=== PATIENT | male | born 1960 | race Caucasian/White ===

== ENCOUNTER 2017-04-24 16:35 | Emergency (ER) | payer OTHER ==
[2017-04-24 16:59] VITALS: BP 127/78; PULSE 51; RESP 18; TEMP 97.3; O2SAT 97
--- NOTE | 2017-04-24 17:39 | EDPHY ---
H & P Stated Complaint: red eyes, bilat Source: Patient, Feeder Loader - Medical/Surgical History Other PMH: Heart murmur - Social History Smoking Status: Former smoker Time Seen by Provider: 04/24/17 17:02 HPI/ROS: CHIEF COMPLAINT: red eyes HISTORY OF PRESENT ILLNESS: 56-year-old male presents to the emergency department complaining of bilateral red eyes. Patient woke up yesterday morning and noticed redness to his right eye, he woke up this morning and had redness to both eyes. Patient denies discharge, blurred vision, photophobia, foreign body sensation, pruritus. Patient denies trauma. No recent vomiting, coughing or straining that he can recall. Pt takes no medication daily. No history of hypertension. Pt denies seasonal allergies or dry eye sensation. REVIEW OF SYSTEMS: A comprehensive 10 point review of systems is otherwise negative aside from elements mentioned in the history of present illness. (Macie Aguayo) - Physical Exam Exam: Visual Acuity: Noted from Nurse's notes. Pupils: PERRLA, EOMI, no nystagmus, no trauma, no injection. Lids: No edema or swelling Skin: No proptosis, no periorbital erythema or swelling, no vesicles Conjunctivae: injected bilaterally not icteric, no discharge Anterior chamber: Normal, no hyphema or hypopyon (Macie Aguayo) Constitutional: Initial Vital Signs Temperature (C) 36.3 C 04/24/17 16:56 Heart Rate 51 L 04/24/17 16:56 Respiratory Rate 18 04/24/17 16:56 Blood Pressure 127/78 H 04/24/17 16:56 O2 Sat (%) 97 04/24/17 16:56 O2 Delivery Mode Room Air Allergies/Adverse Reactions: No Known Allergies Allergy (Unverified 04/24/17 16:54) Home Medications: Medication Instructions Recorded NK [No Known Home Meds] 04/24/17 Medical Decision Making ED Course/Re-evaluation: 56-year-old male presents bilateral subconjunctival hemorrhages with no other symptoms. Patient has a normal visual acuity no discharge, no evidence of infection, no photophobia. Patient denies trauma. Dizziness, chest pain, shortness of, no bleeding gums, hematuria or blood in stool. Patient takes no anticoagulants. Patient does not were contact lenses. I have recommended saline eyedrops 4 times a day and follow [facility] next week. He is given strict return precautions for any new symptoms or concerns. (Macie Aguayo) Differential Diagnosis: Diagnosis considered but not limited to subconjunctival hemorrhage, episcleritis , scleritis, iritis, foreign body, corneal abrasion. (Macie Aguayo) Departure - Departure Disposition: Home, Routine, Self-Care Clinical Impression: Subconjunctival hemorrhage, non-traumatic Condition: Good Instructions: Subconjunctival Hemorrhage (ED) Additional Instructions: Use lubricating saline eye drops four times per day. Follow [facility] for re-evaluation. Return to the emergency department for any headache, blurred vision, light headed, dizzy, short of breath, chest pain, blood in urine, stool or any bleeding from your gums. Use gotas kemp lubricantes cutro veces por patricio. Lakshmi romeo de seguimiento con la [facility] esta proxima semana para rambo reevaluacion. Regrese al departamento de Emergencias por cualquier dolor de pati, vista borrosa, aturdido, mareado, falta de aire, dolor en el pecho, shira en la orina, evacuacion intestinal o cualquier sagrado de greg gomas. Referrals: [facility] [Other] - As per Instructions Print Language: Beninese
== END 2017-04-24 18:10 | disposition home or self-care (01) ==
DX: H11.33 Conjunctival hemorrhage, bilateral (principal); Z87.891 Personal history of nicotine dependence

== ENCOUNTER 2017-05-25 07:32 | Day surgery (SDC) | payer OTHER ==
[2017-05-25] MEDS ORDERED: ASPIRIN EC 325 MG TAB PO ONE (07:36)
[2017-05-25] MEDS ORDERED: NS 1,000 ML IV ONE (07:36)
[2017-05-25] MEDS ORDERED: DIAZEPAM 5 MG TAB PO ONE (07:36)
[2017-05-25] MEDS ORDERED: FAMOTIDINE 20 MG TAB PO ONE (07:36)
[2017-05-25] MEDS ORDERED: diphenhydrAMINE 25 MG CAP PO ONE (07:36)
--- NOTE | 2017-05-25 08:07 | CPEKG ---
Heart Rate: 52 RR Interval: 1154 P-R Interval: 168 QRSD Interval: 102 QT Interval: 472 QTC Interval: 439 P Ash[place]: 47 QRS [place]: 19 T Wave [place]: 165 EKG Severity - ABNORMAL ECG - EKG Impression: SINUS RHYTHM EKG Impression: LVH WITH SECONDARY REPOLARIZATION ABNORMALITY EKG Impression: ANTERIOR ST ELEVATION, PROBABLY DUE TO LVH Electronically Signed By: Jasmeet Umanzor 25-May-2017 09:05:38
[2017-05-25 08:22] LABS: % IMMATURE GRANULYOCYTES 0.4 % (0.0-1.1); ABSOLUTE IMMATURE GRANULOCYTES 0.02 10^3/uL (0.00-0.10); ADD DIFF? NO; ADD MORPH? NO; ADD SCAN? NO; ATYPICAL LYMPHOCYTE FLAG 10 (0-99); FRAGMENT RBC FLAG 0 (0-99); HEMATOCRIT 43.4 % (40.0-51.0); LEFT SHIFT FLG 0 (0-99); LIPEMIA HEMOLYSIS FLAG 90 (0-99); MEAN CELL HEMOGLOBIN 31.6 pg (27.9-34.1); MEAN CELL HEMOGLOBIN CONCENTR. 34.6 g/dL (32.4-36.7); MEAN CELL VOLUME 91.6 fL (81.5-99.8); MEAN PLATELET VOLUME 10.6 fL (8.7-11.7); PLATELET CLUMPS FLAG 0 (0-99); PLATELET COUNT 182 10^3/uL (150-400); RED BLOOD CELL COUNT 4.74 10^6/uL (4.40-6.38); RED CELL DISTRIBUTION WIDTH 13.8 % (11.5-15.2)
[2017-05-25 08:32] LABS: INR 0.97 (0.83-1.16); PROTIME(PATIENT) 12.8 SEC (12.0-15.0)
[2017-05-25 08:40] LABS: ANION GAP 8 mEq/L (8-16); CALCIUM 9.5 mg/dL (8.5-10.4); CARBON DIOXIDE 26 mEq/l (22-31); CHLORIDE 105 mEq/L (97-110); CHOLESTEROL 227 mg/dL (140-220); CHOLESTEROL/HDL RATIO 2.55 RATIO (1.00-4.97); GLOMERULAR FILTRATION RATE > 60; GLUCOSE 91 mg/dL (70-100); HIGH DENSITY LIPOPROTEIN 89 mg/dL (40-65); LDL/HDL RATIO 1.35 RATIO (1.00-3.64); LOW DENSITY LIPOPROTEIN 120 mg/dL (80-100); MAGNESIUM 2.1 mg/dL (1.6-2.3); NON-HIGH DENSITY LIPOPROTEIN 138 mg/dL (90-129); POTASSIUM 3.8 mEq/L (3.5-5.2); SODIUM 139 mEq/L (134-144); TRIGLYCERIDE 94 mg/dL (40-150); VERY LOW DENSITY LIPOPROTEINS 18 mg/dL (8-25)
[2017-05-25] MEDS ORDERED: LIDOCAINE 1% 300 MG/30 ML SDV ONE (09:30)
[2017-05-25] MEDS ORDERED: IOPAMIDOL (ISOVUE-370) 150 ML BTL IV ONE (09:30)
[2017-05-25] MEDS ORDERED: fentaNYL 100 MCG/2 ML INJ ONE (09:40)
[2017-05-25] MEDS ORDERED: MIDAZOLAM 2 MG/2 ML VIAL ONE (09:41)
[2017-05-25] MEDS ORDERED: ATROPINE SULFATE 1 MG/10 ML SYR ONE (10:45)
--- NOTE | 2017-05-25 13:03 | CPIP ---
[f rep st] INVASIVE CARDIAC PROCEDURE DATE OF PROCEDURE: 05/25/2017 PRIMARY CARE: [facility]. INDICATIONS: Critical aortic stenosis. Preoperative coronary evaluation. PROCEDURES: 1. Left heart catheterization. 2. Coronary angiography. COMPLICATIONS: None. DESCRIPTION OF PROCEDURE: N.p.o. status was confirmed, informed consent obtained via a [place]ander inte rpreter, and timeout performed. The patient was brought to the catheterization laboratory and prepp ed and draped in sterile fashion. Adequate conscious sedation was achieved with Versed and fentanyl IV. 1% lidocaine was used for local anesthesia in the right femoral region. Using modified Seldin sherin technique, a 6-Romansh introducer sheath was placed in the right common femoral artery. JL 3.5 c atheter was used for left coronary angiography. JR4 catheter was used for right coronary angiograph y. We did not cross the aortic valve as the patient has known critical aortic stenosis. FINDINGS: 1. The left main is normal and bifurcates into the LAD, a ramus intermedius, and the circumflex. 2. The LAD reaches the apex. There are 2 small diagonal vessels. No significant disease. 3. The ramus is a medium to large vessel. There is no significant coronary disease. 4. The circumflex has 1 obtuse marginal. There is no significant disease. 5. The right coronary artery is dominant and quite large. There is no significant coronary disease . 6. On fluoroscopy the aortic valve and aortic anulus are heavily calcified. 7. Hemodynamics: Aortic pressure 108/74. CONCLUSIONS: 1. No significant coronary disease in this right dominant system. 2. Known critical aortic stenosis based on echocardiography and clinical presentation. 3. The sheath in the right femoral artery will be removed manually as the patient has a high bifurc ation of his superficial and common femoral arteries. 4. Taken to CVC in stable condition. 5. Results discussed with the patient's son. 6. He will have a noncontrast chest CT of his aorta today for pre-cardiac surgery planning. /[id number]/MODL
== END 2017-05-25 16:56 | disposition home or self-care (01) ==
LOC: FCATH 07:32
PROVIDERS: ATTEND Internal Medicine Cardiovascular Disease
PROC: 4A023N7 Measurement of Cardiac Sampling and Pressure, Left Heart, Percutaneous Approach (ICD-10-PCS; principal; 2017-05-25)
PROC: B2161ZZ Fluoroscopy of Right and Left Heart using Low Osmolar Contrast (ICD-10-PCS; principal; 2017-05-25)
DX: Z01.810 Encounter for preprocedural cardiovascular examination (principal); I35.0 Nonrheumatic aortic (valve) stenosis; I10 Essential (primary) hypertension
CPT/HCPCS: J0461; J1644; J2250; J3010; Q9967

== ENCOUNTER → 2017-06-03 | Outpatient (CLI) | payer OTHER | LOC: FIMAGING 12:12 | PROVIDERS: ATTEND Thoracic Surgery (Cardiothoracic Vascular Surgery) | DX: R91.8 Other nonspecific abnormal finding of lung field (principal) ==

== ENCOUNTER 2017-06-10 05:48 | Inpatient (IN) | payer OTHER ==
[2017-06-10] MEDS ORDERED: LIDOCAINE 1% 2 ML INJ ONE (06:35)
[2017-06-10] MEDS: MINERAL OIL 10 ML VIAL ONE ×2 (06:36→13:08)
[2017-06-10] MEDS: PROTAMINE SULFATE 50 MG/5 ML VIAL IVP ONE ×2 (06:38→13:09)
[2017-06-10] MEDS: POTASSIUM Cl (KCl) 20 MEQ/50 ML BAG IV ONE ×2 (06:39→13:09)
[2017-06-10] MEDS: CITRATE DEXTROSE SOLN 500 ML BAG ONE ×2 (06:39→12:59)
[2017-06-10] MEDS: NA BICARBONATE 50 MEQ/50 ML VIAL ONE ×2 (06:39→13:10)
[2017-06-10] MEDS: ALBUMIN 5% 250 ML BOTTLE IV ONE ×2 (06:39→12:58)
[2017-06-10] MEDS: MILRINONE/DEXTROSE/100 ML BAG IV ONE ×2 (06:39→13:08)
[2017-06-10] MEDS: DOPamine/DEXTROSE/250 ML BAG IV ONE ×2 (06:39→12:59)
[2017-06-10] MEDS: AMINOCAPROIC ACID 5 GM/20 ML VIAL ONE ×2 (06:39→12:58)
[2017-06-10] MEDS: CALCIUM CHLORIDE 1 GM/10 ML INJ ONE ×2 (06:39→12:58)
[2017-06-10] MEDS: LIDOCAINE 2% 100 MG/5 ML SYR ONE ×2 (06:39→13:09)
[2017-06-10] MEDS ORDERED: MAGNESIUM SULFATE 1 GM/2 ML VIAL ONE (06:40)
[2017-06-10] MEDS ORDERED: AMIODARONE HCL 150 MG/3 ML VIAL ONE (06:40)
[2017-06-10] MEDS ORDERED: niCARdipine/NACL/200 ML BAG IV ONE (06:40)
[2017-06-10] MEDS ORDERED: ADENOSINE 6 MG/2 ML VIAL ONE (06:40)
[2017-06-10] MEDS ORDERED: methylPREDNISolone SOD SUCC 1 GM/8 ML VIAL ONE (06:40)
[2017-06-10] MEDS ORDERED: HEPARIN 10,000 UNIT/10 ML MDV ONE (06:41)
[2017-06-10] MEDS ORDERED: ceFAZolin 1 GM VIAL ONE (06:41)
[2017-06-10] MEDS ORDERED: LR 1,000 ML IV ONE (06:52)
--- NOTE | 2017-06-10 06:53 | PDHPUP ---
History & Physical Update H&P update statement: This history and physical update is based on an assessment of the patient which was completed after admission or registration (within 24 hours), but prior to the surgery/procedure. H&P update: H&P reviewed & patient examined, no change in patient's condition since H&P completed
[2017-06-10] MEDS ORDERED: CEFAZOLIN 2 GM/DEXTROSE/100 ML BAG IV ONE (06:56)
[2017-06-10] MEDS ORDERED: MUPIROCIN 2% 22 GM OINT ONE (06:56)
--- NOTE | 2017-06-10 07:03 | PDANEPAE ---
ANE History of Present Illness here for avr ANE Past Medical History - Cardiovascular History Hx Hypertension: Yes Hx Arrhythmias: No Hx Chest Pain: No Hx Coronary Artery / Peripheral Vascular Disease: No Hx CHF / Valvular Disease: No Hx Palpitations: No Cardiovascular History Comment: aortic stenosis - Pulmonary History Hx COPD: No Hx Asthma/Reactive Airway Disease: No Hx Recent Upper Respiratory Infection: No Hx Oxygen in Use at Home: No Hx Sleep Apnea: No Sleep Apnea Screening Result - Last Documented: Positive - Neurologic History Hx Cerebrovascular Accident: No Hx Seizures: No Hx Dementia: No - Endocrine History Hx Diabetes: No Hypothyroid: No Hyperthyroid: No Obesity: no - Renal History Hx Renal Disorders: No - Liver History Hx Hepatic Disorders: No - Neurological & Psychiatric Hx Hx Neurological and Psychiatric Disorders: No - Cancer History Hx Cancer: No - Congenital Disorder History Hx Congenital Disorders: No - GI History GERD: no, mild Hx Gastrointestinal Disorders: No - Other Health History Other Health History: none - Chronic Pain History Chronic Pain: No - Surgical History Prior Surgeries: na ANE Review of Systems Review of systems is: negative - Exercise capacity Exercise capacity: >=4 METS METS (RN): 3 METS ANE Patient History - Allergies Allergies/Adverse Reactions: No Known Allergies Allergy (Verified 06/09/17 17:46) - Home Medications Home medications: home medication list seen and reviewed Home Medications: Aspirin 81mg (*) 81 mg PO DAILY 05/25/17 [Last Taken Unknown] - Smoking Hx Smoking Status: Former smoker - Family Anes Hx Family Hx Anesthesia Complications: na ANE Labs/Vital Signs - Vital Signs Blood Pressure: 122/80 Heart Rate: 53 Respiratory Rate: 16 O2 Sat (%): 97 Height: 165 cm Weight: 79 kg ANE Physical Exam - Airway Neck exam: FROM Mallampati Score: Class 1 Mouth exam: normal dental/mouth exam - Pulmonary Pulmonary: no respiratory distress - Cardiovascular Cardiovascular: regular rate and rhythym - ASA Status ASA Status: IV ANE Anesthesia Plan Anesthesia Plan: general endotracheal anesthesia Lines/Monitors: central line, PAOLO
[2017-06-10] MEDS ORDERED: fentaNYL 100 MCG/2 ML INJ ONE ×5 (07:07→11:09)
[2017-06-10] MEDS ORDERED: MIDAZOLAM 2 MG/2 ML VIAL ONE (07:09)
[2017-06-10] MEDS ORDERED: PROPOFOL 200 MG/20 ML VIAL ONE ×2 (07:09→11:26)
[2017-06-10] MEDS ORDERED: PHENYLEPHRINE HCL 100 MCG/ML SYR ONE (07:14)
[2017-06-10] MEDS ORDERED: KETAMINE 100 MG/10 ML SYR ONE (07:26)
[2017-06-10] MEDS ORDERED: MIDAZOLAM 2 MG/2 ML VIAL IVP ONE (08:27)
[2017-06-10] MEDS ORDERED: SODIUM BICARBONATE 20 MEQ, LIDOCAINE 1% 10 ML in NORMOSOL-R 1,000 ML MISC ONE (10:00)
[2017-06-10] MEDS ORDERED: NOREPINEPHRINE BITARTRATE 16 MG in NS 250 ML IV ONE (10:00)
[2017-06-10] MEDS ORDERED: MANNITOL 20% 50 GM/250 ML BAG IV ONE (10:00)
[2017-06-10] MEDS ORDERED: CITRATE DEXTROSE SOLN 500 ML BAG MISC ONE (10:00)
[2017-06-10] MEDS ORDERED: niCARdipine/NACL 200 ML IV SCH (10:00)
[2017-06-10] MEDS ORDERED: ceFAZolin 2 GM/DEXTROSE 100 ML IV ONE (10:00)
[2017-06-10] MEDS ORDERED: AMINOCAPROIC ACID 5 GM/20 ML VIAL IV ONE (10:00)
[2017-06-10] MEDS ORDERED: MUPIROCIN 2% 22 GM OINT NS ONE (10:00)
[2017-06-10] MEDS ORDERED: PHENYLEPHRINE HCL 50 MG in NS 250 ML IV ONE (10:00)
[2017-06-10] MEDS ORDERED: INSULIN REGULAR HUMAN 100 UNIT in NS 100 ML IV ONE (10:00)
[2017-06-10] MEDS ORDERED: SUGAMMADEX SODIUM 200 MG/2 ML VIAL IVP ONE (11:09)
--- NOTE | 2017-06-10 11:24 | POSTOPPROG ---
Post Op Note Date of Operation: 06/10/17 Surgeon: Nadir Dhillon Customer Service Associate: Yarely Anesthesiologist: Stalin Anesthesia: GET(General Endotracheal) Pre-op Diagnosis: Procedure: AVR #23 Magna, aortoplasty Inf/Abcess present in the surg proc area at time of surgery?: No EBL: 50-100
[2017-06-10] MEDS ORDERED: LACTULOSE 20 GM/30 ML UDCUP PO PRN (11:27)
[2017-06-10] MEDS ORDERED: BISACODYL 10 MG SUPP PR PRN (11:27)
[2017-06-10] MEDS ORDERED: ACETAMINOPHEN 650 MG SUPP PR PRN (11:27)
[2017-06-10] MEDS ORDERED: ACETAMINOPHEN 325 MG TAB PO PRN (11:27)
[2017-06-10] MEDS ORDERED: fentaNYL 100 MCG/2 ML INJ IVP PRN (11:27)
[2017-06-10] MEDS ORDERED: ONDANSETRON 4 MG/2 ML VIAL IVP PRN (11:27)
[2017-06-10] MEDS ORDERED: POLYETHYLENE GLYCOL 3350 17 GM PKT PO PRN (11:27)
[2017-06-10] MEDS ORDERED: MEPERIDINE 25 MG/ML SYR IVP PRN (11:27)
[2017-06-10] MEDS ORDERED: ALBUMIN 5% 250 ML IV PRN (11:27)
[2017-06-10] MEDS ORDERED: MAGNESIUM HYDROXIDE 30 ML UDCUP PO PRN (11:27)
[2017-06-10] MEDS ORDERED: MAGNESIUM SULF 2 GM/WATER 50 ML IV ONE (11:27)
[2017-06-10] MEDS ORDERED: SODIUM CL NASAL 45 ML BTL EACHNARE PRN (11:27)
[2017-06-10] MEDS ORDERED: POTASSIUM Cl (KCl) 50 ML IV PRN (11:27)
[2017-06-10] MEDS ORDERED: ONDANSETRON DISINTEGRATING 4 MG TAB PO PRN (11:27)
[2017-06-10] MEDS ORDERED: CEPACOL LOZENGE PO PRN (11:27)
[2017-06-10] MEDS ORDERED: PANTOPRAZOLE SODIUM 40 MG in NS 100 ML IV ONE (11:27)
[2017-06-10] MEDS ORDERED: D50W 25 GM/50 ML SYR IVP PRN (11:27)
[2017-06-10] MEDS ORDERED: METOCLOPRAMIDE 10 MG/2 ML VIAL IVP PRN (11:27)
[2017-06-10] MEDS ORDERED: INSULIN REGULAR HUMAN 100 UNIT in NS 100 ML IV SCH (11:30)
[2017-06-10] MEDS ORDERED: NS 1,000 ML IV SCH (11:30)
[2017-06-10] MEDS ORDERED: MAGNESIUM SULF 2 GM/WATER 50 ML BAG IV ONE (11:33)
[2017-06-10] MEDS ORDERED: ALBUMIN 5% 250 ML BOTTLE IV ONE (11:33)
[2017-06-10 12:01] LABS: CALCULATED OXYGEN SATURATION 91 % (92-95)
--- NOTE | 2017-06-10 12:13 | CPEKG ---
Heart Rate: 83 RR Interval: 723 P-R Interval: 180 QRSD Interval: 102 QT Interval: 420 QTC Interval: 494 P Cecilia: 33 QRS Cecilia: 3 T Wave Cecilia: 138 EKG Severity - ABNORMAL ECG - EKG Impression: SINUS RHYTHM EKG Impression: PROBABLE LEFT ATRIAL ABNORMALITY EKG Impression: LVH WITH SECONDARY REPOLARIZATION ABNORMALITY EKG Impression: BORDERLINE PROLONGED QT INTERVAL Electronically Signed By: Akash Conti 10-Jun-2017 14:25:48
[2017-06-10] MEDS ORDERED: KETOROLAC 30 MG/1 ML SDV ONE (12:15)
--- NOTE | 2017-06-10 13:01 | GCON ---
[f rep st] CONSULTATION LINER REPLACER CONSULTATION. The patient examined postoperatively after receiving an aortic valve replacement. HISTORY OF PRESENT ILLNESS: The patient 56-year-old male with a past medical history of hypertensio n, aortic stenosis, who is examined postoperatively. Patient is currently somewhat sedated but not on mechanical ventilation. He is examined immediately postoperative. All history is gleaned from [facility] medical record. PAST MEDICAL HISTORY: Significant for aortic stenosis, hypertension. PAST SURGICAL HISTORY: None. ALLERGIES: No known to medications. SOCIAL HISTORY: No history of tobacco use. No history of alcohol use. He has good family support. FAMILY HISTORY: Significant for a brain neoplasm. PHYSICAL EXAMINATION: VITAL SIGNS: Blood pressure is 122/80, pulse 53, respirations 16, temperatur e 36.5, oxygen saturation 97% on supplemental oxygen. GENERAL: He is a well-developed, well-nouris hed 56-year-old male, who is resting comfortably in no acute distress. HEENT: Eyes are MARGA, EOMI. Throat shows no erythema or tonsillar hypertrophy. NECK: Supple. There is no cervical adenopath y. HEART: Regular rate and rhythm with a 2/6 systolic murmur left sternal border without radiation . Sternal wound is present. LUNGS: Show diminished breath sounds but otherwise clear. ABDOMEN: Soft, nontender. Bowel sounds are present in all 4 quadrants. EXTREMITIES: No clubbing, cyanosis, or edema. LABORATORY DATA: Arterial blood gas pH 7.29, pCO2 of 53, pO2 of 69, bicarb 26, oxygen saturation 91 %. IMPRESSION: 1. Aortic stenosis. 2. Status post aortic valve and aortoplasty. 3. History of hypertension. 4. Respiratory stable off mechanical ventilation. RECOMMENDATIONS: 1. Wean FiO2 as tolerated. 2. DVT and PE prophylaxis holding anticoagulation for now. 3. Stress ulcer prophylaxis. 4. Aggressive blood sugar control. 5. Early ambulation. 6. PT and OT. /[id number]/MODL
--- NOTE | 2017-06-10 13:06 | GOP ---
[f rep st] OPERATIVE REPORT DATE OF OPERATION: 06/10/2017 SURGEON: Nadir Dhillon DO [employer] OPERATOR: Darwin Pritchett PA-C. ANESTHESIOLOGIST: Rinku Gant MD. PREOPERATIVE DIAGNOSIS: Critical aortic stenosis. POSTOPERATIVE DIAGNOSIS: Critical aortic stenosis. PROCEDURE PERFORMED: 1. Aortic valve replacement with a #23 Magna bioprosthesis. 2. Bovine pericardial aortoplasty. FINDINGS: Patient was noted to have critical aortic stenosis. He was referred for surgical interve ntion. Diagnostic left heart catheterization revealed no significant coronary disease. He was cons ented. All risks and complications were reviewed at length with the patient and his family. DESCRIPTION OF PROCEDURE: He was brought to the operating room intubated. Monitoring lines were pl aced. He was prepped and draped in sterile classical manner. Transesophageal echo confirmed preop with mild aortic insufficiency and critical aortic stenosis. Sternotomy was performed. He was hepa rinized, cannulated in the ascending aorta, which was normal in size, caliber, and wall thickness, a s well as the right atrium. Antegrade and retrograde cardioplegic catheters were placed. Cardiopul monary bypass was begun. Cardioplegic arrest was obtained with antegrade cardioplegia, retrograde c ardioplegia, topical hypothermia, and systemic cooling. It was noted that the patient had severe le ft ventricular hypertrophy on echo and palpably in the OR. Standard aortotomy was performed. Heavi ly calcified bicuspid valve was excised. Anulus was debrided as was the anterior surface of the john ral valve. LV chamber was copiously irrigated. CO2 was infused throughout the procedure. We then placed a 23 Magna valve in a supra-annular position with interrupted 2-0 Tycron pledgeted mattress s utures using Cor-Knots. Aortotomy was closed with a bovine pericardial patch, enlarged because of i ts rather small size at the sinotubular junction and true bicuspid nature, allowing the sinuses to b e slightly enlarged. This was completed without difficulty. Cross-clamp was removed with suction o n the ascending aortic vent and LV sump in Trendelenburg as well as intermittent aspiration of the L V apex. When no further air was identified, the patient was easily weaned from bypass. The heparin was reversed with protamine. The cannula was removed and oversewn. Two ventricular pacing wires w ere placed. Transesophageal echo revealed a mean gradient of 10. No perivalvular leak. Good symme trical LV function. Thymic fat and pericardium were closed. Chest was closed in standard fashion w ith 2 mediastinal drains. Patient was returned to ICU, extubated, in stable condition. /[id number]/MODL
--- NOTE | 2017-06-10 13:24 | POSTANESTH ---
Post Anesthetic Evaluation Cardiovascular Status: Normal, Stable Respiratory Status: Normal, Stable Pain Control: Adequate, Prn Tx Ordered Nausea/Vomiting Control: Adequate, Prn Tx Ordered Complications Possibly Related to Anesthesia: None Noted
[2017-06-10] MEDS ORDERED: KETOROLAC 30 MG/1 ML SDV IVP ONE (13:30)
[2017-06-10] MEDS: ceFAZolin 2 GM/DEXTROSE 100 ML IV SCH ×2 (14:00→21:37)
[2017-06-10 17:01] LABS: CALCULATED OXYGEN SATURATION 91 % (92-95)
[2017-06-10] MEDS: SENNOSIDES/DOCUSATE SODIUM TAB PO SCH (21:33)
[2017-06-10] MEDS: HYDROCODONE/APAP 5/325 TAB PO PRN (21:34)
[2017-06-10] MEDS: MUPIROCIN 2% 22 GM OINT NS SCH (21:36)
[2017-06-10 22:23] LABS: HEMATOCRIT 37.6 % (40.0-51.0); HEMOGLOBIN 12.9 g/dL (13.7-17.5); MEAN CELL HEMOGLOBIN 31.6 pg (27.9-34.1); MEAN CELL HEMOGLOBIN CONCENTR. 34.3 g/dL (32.4-36.7); MEAN CELL VOLUME 92.2 fL (81.5-99.8); RED BLOOD CELL COUNT 4.08 10^6/uL (4.40-6.38); RED CELL DISTRIBUTION WIDTH 14.3 % (11.5-15.2)
[2017-06-11] MEDS: KETOROLAC 15 MG/1 ML SDV IVP PRN (02:09)
[2017-06-11 05:30] LABS: ABSOLUTE IMMATURE GRANULOCYTES 0.12 10^3/uL (0.00-0.10); ADD DIFF? NO; ADD MORPH? NO; ADD SCAN? NO; ATYPICAL LYMPHOCYTE FLAG 0 (0-99); FRAGMENT RBC FLAG 0 (0-99); HEMATOCRIT 35.1 % (40.0-51.0); HEMOGLOBIN 12.2 g/dL (13.7-17.5); LEFT SHIFT FLG 10 (0-99); LIPEMIA HEMOLYSIS FLAG 90 (0-99); MEAN CELL HEMOGLOBIN 32.1 pg (27.9-34.1); MEAN CELL HEMOGLOBIN CONCENTR. 34.8 g/dL (32.4-36.7); MEAN CELL VOLUME 92.4 fL (81.5-99.8); PLATELET CLUMPS FLAG 0 (0-99); PLATELET COUNT 120 10^3/uL (150-400); RED CELL DISTRIBUTION WIDTH 14.6 % (11.5-15.2)
[2017-06-11 05:49] LABS: ANION GAP 7 mEq/L (8-16); CALCIUM 8.5 mg/dL (8.5-10.4); CARBON DIOXIDE 24 mEq/l (22-31); CHLORIDE 106 mEq/L (97-110); CREATININE 0.9 mg/dL (0.7-1.3); GLOMERULAR FILTRATION RATE > 60; GLUCOSE 93 mg/dL (70-100); POTASSIUM 4.5 mEq/L (3.5-5.2); SODIUM 137 mEq/L (134-144)
[2017-06-11] MEDS: ceFAZolin 2 GM/DEXTROSE 100 ML IV SCH ×3 (05:51→21:55)
[2017-06-11] MEDS: HYDROCODONE/APAP 5/325 TAB PO PRN ×4 (05:51→20:46)
[2017-06-11] MEDS: HEPARIN 5,000 UNIT/0.5 ML SYR SC SCH ×3 (05:52→21:55)
--- NOTE | 2017-06-11 06:41 | SOAPPROG ---
SOAP Progress Note Assessment/Plan: POD #1 AVR with #23 Magna bioprosthesis, bovine pericardial aortoplasty Critical s/p AVR - Transfer to PCU this AM - BB when appropriate Acute blood loss anemia - Stable without the need for BP transfusions Subjective: Comfortable. Denies SOB/CP. Objective: Vital Signs Temp Pulse Resp BP Pulse Ox 37.1 C 73 15 108/69 97 06/11/17 05:00 06/11/17 05:00 06/11/17 05:00 06/11/17 05:00 06/11/17 05:00 Laboratory Results 06/11/17 05:15 06/11/17 05:15 06/10/17 06/11/17 06/12/17 05:59 05:59 05:59 Intake Total 1965 Output Total 1795 Balance 170 Physical Exam - Physical Exam General Appearance: WD/WN, alert, no apparent distress EENT: No scleral icterus (R), No scleral icterus (L) Neck: normal inspection Respiratory: lungs clear, No respiratory distress Cardiac/Chest: regular rate, rhythm Abdomen: non-tender, No distended Skin: normal color, warm/dry Extremities: No pedal edema Neuro/Psych: no motor/sensory deficits, alert, normal mood/affect, oriented x 3 ICD10 Worksheet Patient Problems: Problems Problem Status Onset S/P aortic valve replacement and aortoplasty Acute S/P AVR (aortic valve replacement) Acute Aortic stenosis Chronic
[2017-06-11] MEDS: MUPIROCIN 2% 22 GM OINT NS SCH ×2 (08:11→22:04)
[2017-06-11] MEDS: ASPIRIN 81 MG CHEWABLE TAB PO SCH (08:11)
[2017-06-11] MEDS: SENNOSIDES/DOCUSATE SODIUM TAB PO SCH ×2 (08:11→20:47)
--- NOTE | 2017-06-11 09:15 | PDINTPN ---
Machine Bunch Maker Progress Note Assessment/Plan: Assessment: * Status post aortic valve replacement * Hypertension * History of aortic stenosis * Pain-well controlled * Respiratory-stable * Nutrition-adequate * PT/OT Plan: Continue present care Subjective: Sitting up in chair. Chest pain only occurs with deep inspiration or cough. He is not breathless Objective: Vital Signs Temp Pulse Resp BP Pulse Ox 37.0 C 73 16 110/64 95 06/11/17 07:00 06/11/17 07:37 06/11/17 07:37 06/11/17 07:37 06/11/17 07:37 Laboratory Results 06/11/17 05:15 06/11/17 05:15 06/10/17 06/11/17 06/12/17 05:59 05:59 05:59 Intake Total 1965 Output Total 1795 Balance 170 Physical Exam - Physical Exam General Appearance: alert, no apparent distress EENT: PERRL/EOMI, normal ENT inspection, pharynx normal, TMs normal Neck: non-tender, full range of motion, supple, normal inspection Respiratory: chest non-tender, lungs clear, normal breath sounds Cardiac/Chest: normal peripheral pulses, regular rate, rhythm, systolic murmur Peripheral Pulses: 2+: carotid (R), carotid (L), femoral (R), femoral (L), dorsalis-pedis (R), dorsalis-pedis (L) Abdomen: normal bowel sounds, non-tender, soft Male Genitalia: deferred Rectal: deferred Skin: normal color, warm/dry Extremities: normal range of motion, non-tender, normal inspection, normal capillary refill Neuro/Psych: no motor/sensory deficits, alert, normal mood/affect, oriented x 3 ICD10 Worksheet Patient Problems: Problems Problem Status Onset S/P aortic valve replacement and aortoplasty Acute Aortic stenosis Chronic S/P AVR (aortic valve replacement) Acute
[2017-06-11] MEDS: PANTOPRAZOLE SODIUM 40 MG TAB PO SCH (10:49)
[2017-06-11 12:14] LABS: POTASSIUM 4.4 mEq/L (3.5-5.2)
[2017-06-11] MEDS: METOPROLOL TARTRATE 25 MG TAB PO SCH (20:46)
[2017-06-11] MEDS: traMADol 50 MG TAB PO PRN (21:54)
[2017-06-12] MEDS: HEPARIN 5,000 UNIT/0.5 ML SYR SC SCH ×3 (05:27→21:17)
[2017-06-12 05:57] LABS: % IMMATURE GRANULYOCYTES 0.7 % (0.0-1.1); ABSOLUTE IMMATURE GRANULOCYTES 0.08 10^3/uL (0.00-0.10); ADD DIFF? NO; ADD MORPH? NO; ADD SCAN? NO; ATYPICAL LYMPHOCYTE FLAG 0 (0-99); FRAGMENT RBC FLAG 0 (0-99); HEMATOCRIT 33.9 % (40.0-51.0); HEMOGLOBIN 11.4 g/dL (13.7-17.5); LEFT SHIFT FLG 10 (0-99); LIPEMIA HEMOLYSIS FLAG 80 (0-99); MEAN CELL HEMOGLOBIN CONCENTR. 33.6 g/dL (32.4-36.7); MEAN CELL VOLUME 95.2 fL (81.5-99.8); PLATELET CLUMPS FLAG 10 (0-99); PLATELET COUNT 97 10^3/uL (150-400); RED BLOOD CELL COUNT 3.56 10^6/uL (4.40-6.38); RED CELL DISTRIBUTION WIDTH 14.4 % (11.5-15.2)
[2017-06-12 06:06] LABS: ANION GAP 5 mEq/L (8-16); CALCIUM 8.7 mg/dL (8.5-10.4); CARBON DIOXIDE 27 mEq/l (22-31); CHLORIDE 101 mEq/L (97-110); GLOMERULAR FILTRATION RATE > 60; GLUCOSE 126 mg/dL (70-100); POTASSIUM 4.5 mEq/L (3.5-5.2); SODIUM 133 mEq/L (134-144)
[2017-06-12] MEDS: KETOROLAC 15 MG/1 ML SDV IVP PRN (09:21)
[2017-06-12] MEDS: SENNOSIDES/DOCUSATE SODIUM TAB PO SCH ×2 (09:22→21:16)
[2017-06-12] MEDS: HYDROCODONE/APAP 5/325 TAB PO PRN ×2 (09:23→17:55)
[2017-06-12] MEDS: ASPIRIN 81 MG CHEWABLE TAB PO SCH (09:24)
[2017-06-12] MEDS: METOPROLOL TARTRATE 25 MG TAB PO SCH ×2 (09:24→21:17)
[2017-06-12] MEDS: PANTOPRAZOLE SODIUM 40 MG TAB PO SCH (09:24)
[2017-06-12] MEDS: MUPIROCIN 2% 22 GM OINT NS SCH (09:25)
--- NOTE | 2017-06-12 09:30 | SOAPPROG ---
SOAP Progress Note Assessment/Plan: Assessment:POD#2 AVR with #23 Magna bioprosthesis, bovine pericardial patch aortoplasty Critical /mild AI - s/p tissue AVR with patch aortoplasty. Stable early postop course. AF prophylaxis with BB as tolerated. Antithrombotic prophylaxis with ASA alone pending stability of rhythm. Valvular cardiomyopathy - Low nl LVEF, mild LVDD, moderate LVH. Modest volume overload. Staggered intro of heart failure regimen as tolerated. Acute expected blood loss anemia - Stable. No blood transfusions. H/H > 10/33 maintained. VTE prophylaxis with SQ hep. Plan: Remove Vwires and drains. Cont metoprolol 12.5 mg BID. Gentle diuresis. Inc activity and pulmonary toilet. Baseline postop echo tomorrow. Dispo - Anticipate home 06/12/17 09:28 Subjective: Doing ok. Improving mobility. Walks in the room without assist device. Less SOB than preop. Thinks he'll be ready for home on Wed. Objective: Vital Signs Temp Pulse Resp BP Pulse Ox 36.4 C 78 20 134/79 H 95 06/12/17 07:50 06/12/17 07:50 06/12/17 07:50 06/12/17 07:50 06/12/17 07:50 Laboratory Results 06/12/17 05:35 06/12/17 05:35 06/11/17 06/12/17 06/13/17 05:59 05:59 05:59 Intake Total 1965 1375 Output Total 1795 830 Balance 170 545 HR controlled. Rhythm stable. Upward trending BP. Downward trending UOP w consistently positive fluid balance. +3 kg overall. CTOP at removal criteria. Sl dip in plt count. - Pending Discharge Pending Discharge Within 48 Hours: Yes Pending Discharge Date: 06/14/17 Pending Discharge Time: 11:00 Physical Exam - Physical Exam General Appearance: alert, no apparent distress Respiratory: decreased breath sounds (bases), other (Blakes x 2 to bulb suction , serosang drainage. Vwires intact.) Cardiac/Chest: regular rate, rhythm, other (Sternum grossly stable. Sternotomy CDI. Vwire intact.) Abdomen: non-tender, soft Skin: warm/dry Extremities: swelling (trace) ICD10 Worksheet Patient Problems: Problems Problem Status Onset S/P aortic valve replacement and aortoplasty Acute Aortic stenosis Chronic S/P AVR (aortic valve replacement) Acute
--- NOTE | 2017-06-12 12:35 | ASMTCASEMG ---
Case Management Evaluation Financial Needs Answers: Uninsured Notes: requested Medicaid application Discharge Plan Comments Coordination Status Comments Notes: Reviewed chart, spoke w/RN and PT. Case Management d/c poc home w/family support when medically stable w/follow up as directed by MD. Requested Medicaid application d/t under insured status. Case Management available if needs change. Date Signed: 06/12/2017 12:34 PM Electronically Signed By:Regla Chairez
[2017-06-12] MEDS ORDERED: POTASSIUM CL 10 MEQ TAB PO ONE (14:00)
[2017-06-12] MEDS ORDERED: FUROSEMIDE 20 MG/2 ML VIAL IVP ONE (14:00)
[2017-06-13] MEDS: traMADol 50 MG TAB PO PRN ×2 (01:26→23:55)
[2017-06-13] MEDS: HEPARIN 5,000 UNIT/0.5 ML SYR SC SCH ×3 (06:08→21:06)
--- NOTE | 2017-06-13 08:26 | SOAPPROG ---
SOAP Progress Note Assessment/Plan: Assessment:POD#3 AVR with #23 Magna bioprosthesis, bovine pericardial patch aortoplasty Critical /mild AI - s/p tissue AVR with patch aortoplasty. Stable early postop course. AF prophylaxis with BB as tolerated. Antithrombotic prophylaxis with ASA alone pending stability of rhythm. Valvular cardiomyopathy - Low nl LVEF, mild LVDD, moderate LVH. Modest volume overload. Staggered intro of heart failure regimen as tolerated. Acute expected blood loss anemia - Stable. No blood transfusions. H/H > 10/33 maintained. VTE prophylaxis with SQ hep. Plan: Cont metoprolol 12.5 mg BID. Cont gentle diuresis. Wean O2. Baseline postop echo today. Dispo - Anticipate home tomorrow if room air sats adequate (no insurance). 06/13/17 08:24 Subjective: Doing ok. Satisfactory analgesia. Walked one lap around the [place] without assist device. Comfortable going home tomorrow. Objective: Vital Signs Temp Pulse Resp BP Pulse Ox 37.3 C 68 12 114/68 93 06/13/17 07:14 06/13/17 07:14 06/13/17 07:14 06/13/17 07:14 06/13/17 07:14 Laboratory Results 06/13/17 06:10 06/13/17 06:10 06/12/17 06/13/17 06/14/17 05:59 05:59 05:59 Intake Total 1375 2370 Output Total 830 1135 Balance 545 1235 HR and BP controlled. Almost off O2, desatting during ambulation. Adequate fluid balance by wt, down 1.4 kg/24h. +1.2 kg overall. Labs ok. - Pending Discharge Pending Discharge Within 24 Hours: Yes Pending Discharge Date: 06/14/17 Pending Discharge Time: 11:00 Physical Exam - Physical Exam General Appearance: alert, no apparent distress Respiratory: crackles (bases) Cardiac/Chest: regular rate, rhythm, friction rub, other (Sternum grossly stable. Sternotomy and CT sites ok.) Abdomen: non-tender, soft Skin: warm/dry Extremities: other (no visible edema) ICD10 Worksheet Patient Problems: Problems Problem Status Onset S/P aortic valve replacement and aortoplasty Acute Aortic stenosis Chronic S/P AVR (aortic valve replacement) Acute
[2017-06-13] MEDS: PANTOPRAZOLE SODIUM 40 MG TAB PO SCH (08:33)
[2017-06-13] MEDS: METOPROLOL TARTRATE 25 MG TAB PO SCH ×2 (08:33→21:06)
[2017-06-13] MEDS: POTASSIUM CL 20 MEQ TAB PO SCH (08:34)
[2017-06-13] MEDS: ASPIRIN 81 MG CHEWABLE TAB PO SCH (08:34)
[2017-06-13] MEDS: FUROSEMIDE 40 MG TAB PO SCH (08:34)
[2017-06-13] MEDS: SENNOSIDES/DOCUSATE SODIUM TAB PO SCH ×2 (08:34→21:06)
--- NOTE | 2017-06-13 11:26 | ECHO ---
[id number] + + [id number] : : [place] [address] : : [phone] + + Adult Echocardiographic Report + + :Name: ALIA VASQUEZCandida Date: 06/13/2017 10:26 AM : : Hospital Admission Number: [id number] Location: 223: :: 1960 Gender: Male Height : 65 in : :Age: 56 yrs Race: WH Weight : 179 lb : :Reason For Study: Routine baseline postop; s/p AVR #23 CE magna : : BSA: 1 .9 meters2 : :History: No previous : + + MMode/2D Measurements \T\ Calculations IVSd: 1.3 cm LVIDd: 4.4 cm FS: 30.4 % LVOT diam: 1.8 cm LVPWd: 1.4 cm LVIDs: 3.1 cm EDV(Teich): 87.8 ml LVOT area: 2.6 cm2 ESV(Teich): 36.8 ml EF(Teich): 58.1 % Normal Measurement Values: + + :LVIDd (3.5-5.7cm) IVSd (0.6-1.1cm) LVPWd (0.6-1.1cm) Aortic Root (2.0-3.7cm)Left Atrium (1.5-4.0cm): :LV Vol(d) (76-115ml) LV Vol(s) (29-48ml) Ejec Fraction (50-65%)PV Onesimo (0.6- 1.2m/s) TV Onesimo (0.4-1.0m/s) : :MV E Onesimo (0.8-1.0m/s)MV A Onesimo (0.3-1.0m/s)LVOT Onesimo (0.7-1.2m/s) Asc Ao Onesimo ( 0.9-1.8m/s) : + + Doppler Measurements \T\ Calculations MV E max onesimo: MV V2 max: Ao mean PG: LV V1 mean P.6 cm/sec 87.5 cm/sec 16.0 mmHg 2.3 mmHg MV A max onesimo: MV max PG: Ao V2 mean: LV V1 mean: 74.0 cm/sec 3.1 mmHg 183.1 cm/sec 68.6 cm/sec MV E/A: 0.91 MV V2 mean: Ao V2 VTI: 42.5 cm LV V1 VTI: 15.8 cm MV dec time: 56.4 cm/sec JOSE LUIS(I,D): 0.96 cm2 0.28 sec MV mean P.4 mmHg MV V2 VTI: 28.2 cm MVA(VTI): 1.5 cm2 SV(LVOT): 41.0 ml PA V2 max: TR max onesimo: 111.3 cm/sec 211.1 cm/sec PA max PG: TR max P.0 mmHg 17.8 mmHg Left Ventricle The left ventricle is normal in size. There is mild to moderate concentric left ventricular hypertrophy. Ejection Fraction = 55-60%. There is Doppler evidence for diastolic dysfunction. Regional wall motion abnormalities cannot be excluded due to limited visualization. Right Ventricle The right ventricle is grossly normal size. The right ventricular systolic function is borderline reduced. Atria The left atrium is mildly dilated. Right atrial size is normal. The interatrial septum is intact with no evidence for an atrial septal defect. Mitral Valve The mitral valve is normal in structure and function. There is no mitral valve stenosis. There is trace to mild mitral regurgitation. Tricuspid Valve The tricuspid valve is normal in structure and function. There is no tricuspid stenosis. There is trace to mild tricuspid regurgitation. Right ventricular systolic pressure is normal. Aortic Valve #23 CE magna. AV max 2.7 m/s, Mean PG 16 mmHG, Max PG 31 mmHg,. The prosthetic aortic valve is well-seated. Pulmonic Valve The pulmonic valve is not well visualized. There is no pulmonic valvular stenosis. There is no pulmonic valvular regurgitation. Great Vessels The aortic root is normal size. Pericardium/Pleural There is a fat pad seen. There is no pericardial effusion. Conclusion A complete two-dimensional transthoracic echocardiogram was performed (2D, M-mode, Doppler and color flow Doppler). There is mild to moderate concentric left ventricular hypertrophy.There is Doppler evidence for diastolic dysfunction. Ejection Fraction = 55-60%. There is trace to mild mitral regurgitation. There is trace to mild tricuspid regurgitation. The prosthetic aortic valve #23 CE magnais well-seated. Final Reading Physician: Winsome Carlson signed on 06/13/2017 11:24 AM Ordering Physician: Priscilla Martinez Performed By: Sapna Burleson
[2017-06-14] MEDS ORDERED: METOPROLOL TARTRATE 25 MG TAB PO SCH
[2017-06-14] MEDS ORDERED: FUROSEMIDE 40 MG TAB PO SCH
[2017-06-14] MEDS ORDERED: POTASSIUM CL 20 MEQ TAB PO SCH
[2017-06-14] MEDS ORDERED: traMADol 50 MG TAB PO SCH
[2017-06-14] MEDS: HEPARIN 5,000 UNIT/0.5 ML SYR SC SCH (05:21)
[2017-06-14 05:41] LABS: HEMATOCRIT 28.7 % (40.0-51.0); HEMOGLOBIN 9.7 g/dL (13.7-17.5); MEAN CELL HEMOGLOBIN 31.9 pg (27.9-34.1); MEAN CELL HEMOGLOBIN CONCENTR. 33.8 g/dL (32.4-36.7); MEAN CELL VOLUME 94.4 fL (81.5-99.8); RED BLOOD CELL COUNT 3.04 10^6/uL (4.40-6.38); RED CELL DISTRIBUTION WIDTH 13.7 % (11.5-15.2)
[2017-06-14 05:49] LABS: POTASSIUM 4.2 mEq/L (3.5-5.2)
--- NOTE | 2017-06-14 07:16 | SOAPPROG ---
SOAP Progress Note Assessment/Plan: POD#4 AVR with #23 Magna bioprosthesis, bovine pericardial patch aortoplasty Critical /mild AI - s/p tissue AVR with patch aortoplasty. Stable early postop course. AF prophylaxis with BB as tolerated. Antithrombotic prophylaxis with ASA alone pending stability of rhythm. Valvular cardiomyopathy - Low nl LVEF, mild LVDD, moderate LVH. Modest volume overload. Staggered intro of heart failure regimen as tolerated. Acute expected blood loss anemia - Stable. No blood transfusions. H/H > 10/33 maintained. VTE prophylaxis with SQ hep. Subjective: No complaints. Ready to go home. Objective: Vital Signs Temp Pulse Resp BP Pulse Ox 36.7 C 69 16 129/65 H 92 06/14/17 04:00 06/14/17 04:00 06/14/17 04:00 06/14/17 04:00 06/14/17 04:00 Laboratory Results 06/14/17 05:20 06/14/17 05:20 06/13/17 06/14/17 06/15/17 05:59 05:59 05:59 Intake Total 2370 550 Output Total 1135 850 Balance 1235 -300 Physical Exam - Physical Exam General Appearance: WD/WN, alert, no apparent distress EENT: No scleral icterus (R), No scleral icterus (L) Neck: normal inspection Respiratory: No respiratory distress Cardiac/Chest: regular rate, rhythm Abdomen: non-tender, soft, No distended Skin: normal color, warm/dry Extremities: No pedal edema Neuro/Psych: no motor/sensory deficits, alert, normal mood/affect, oriented x 3 ICD10 Worksheet Patient Problems: Problems Problem Status Onset S/P aortic valve replacement and aortoplasty Acute Aortic stenosis Chronic S/P AVR (aortic valve replacement) Acute
[2017-06-14 08:14] VITALS: BP 102/64; PULSE 71; RESP 10; TEMP 98.4
[2017-06-14] MEDS: METOPROLOL TARTRATE 25 MG TAB PO SCH (08:29)
[2017-06-14] MEDS: SENNOSIDES/DOCUSATE SODIUM TAB PO SCH (08:29)
[2017-06-14] MEDS: PANTOPRAZOLE SODIUM 40 MG TAB PO SCH (08:29)
[2017-06-14] MEDS: FUROSEMIDE 40 MG TAB PO SCH (08:30)
[2017-06-14] MEDS: ASPIRIN 81 MG CHEWABLE TAB PO SCH (08:30)
[2017-06-14] MEDS: POTASSIUM CL 20 MEQ TAB PO SCH (08:30)
[2017-06-14] MEDS ORDERED: PNEUMOCOCCAL 0.5ML VACCINE VIAL IM ONE (08:58)
--- NOTE | 2017-06-14 09:05 | PDHOMEO2F ---
Home Oxygen Face to Face Home Orders: I certify that a physician or a nurse practitioner or physician's dermatology physician assistant has had a [id number] encounter with this patient on the date of this order due to the diagnosis listed, which relates to the primary reason the patient requires home oxygen. Alternative treatments have been tried, or considered, and deemed ineffective. It is anticipated that supplemental oxygen will result in improvement with treatment. Home oxygen qualifying diagnosis: s/p AVR Home oxygen secondary diagnosis: CHF, hypoxemia, atelectasis SpO2 on room air (%): 87 Frequency of home oxygen needed: continuous Home oxygen liters per minute: 2 Home oxygen delivery device: nasal cannula Concentrator: Yes E-tanks for mobility and back up: Yes If ordering portable O2, is the patient mobile in the home?: Yes I certify that, based on these findings, the home oxygen is medically necessary for this patient for the following length of time. Length of time home oxygen needed: 1 month
[2017-06-14 09:42] VITALS: O2SAT 85
--- NOTE | 2017-06-14 10:00 | PDDCSUM ---
Discharge Summary Discharge Summary: ADMISSION DATE: 06/10/17 DISCHARGE DATE: 06/14/17 ADMISSION DX: 1. Critical aortic stenosis DISCHARGE DX: 1. Critical aortic stenosis 2. Acute blood loss anemia PROCEDURES 06/10/17, Nadir Dhillon: 1. AVR #21 Magna bioprosthesis, bovine pericardial patch aortoplasty HOSPITAL COURSE BY PROBLEM LIST 1. Critical aortic stenosis - s/p bioprosthetic AVR with bovine pericardial patch aortoplasty - well-tolerated post-operative course. 2. Acute blood loss anemia - stable without the need for blood product transfusions. CONDITION Good DISPOSITION Home, self-care ACTIVITY Pt was instructed on sternal precautions, activity limitations, and which problems to call [facility] with. Please see Discharge Plan in chart for specifics. MEDICATIONS New 1. Acetaminophen [Tylenol 325mg (*)] 325 - 650 mg PO Q4HRS PRN 2. Furosemide [Lasix 40 MG (*)] 40 mg PO DAILY 3. Metoprolol Tartrate [Lopressor 25 mg (*)] 12.5 mg PO BID 4. Potassium Cl [Klor-Con 20 meq (*)] 20 meq PO DAILY 5. traMADol [Ultram 50 mg (*)] 50 - 100 mg PO Q4HRS PRN Continue: 1. Aspirin [Aspirin 81 mg (*)] 81 mg PO DAILY PENDING STUDIES/LABS 1. CXR prior to surgical follow-up F/U APPOINTMENTS 1. Nadir Dhillon: 06/22/17, 9:00 AM
--- NOTE | 2017-06-14 12:11 | ASDISCHSUM ---
Discharge Information Plan Status:Home with DME or Oxygen Medically Cleared to Leave:06/14/2017 Discharge Date:06/14/2017 CM D/C Disposition:Home, Routine, Self-Care ADT D/C Disposition:Home, Routine, Self-Care Projected Discharge Date:06/14/2017 12:00 AM Transportation at D/C:Family Discharge Delay Reason: Follow-Up Date:06/14/2017 12:00 AM Discharge Slot:2 - 12:01 pm - 18:00 pm Final Diagnosis:aortic valve stenosis Placement Information Patient Contact Information Contact Name:VENTURA Relationship:Toby Address: Home Phone: City: [facility] Phone: [facility] Code: Email: Financial Information Financial Class:Self-Pay Primary Plan Desc:WE CARE Primary Plan Number:99 Secondary Plan Desc: Secondary Plan Number: Assessment Information [facility] Initial CM Assessment Case Management Evaluation Financial Needs Answers: Uninsured Notes: requested Medicaid application Discharge Plan Comments Coordination Status Comments Notes: Reviewed chart, spoke w/RN and PT. Case Management d/c poc home w/family support when medically stable w/follow up as directed by . Requested Medicaid application d/t under insured status. Case Management available if needs change. Date Signed: 06/12/2017 12:34 PM Electronically Signed By:Regla Chairez Intervention Information
--- NOTE | 2017-06-14 12:23 | ASMTCMCOM ---
CM Note CM Note Notes: Patient discharged home with family with no additional Case management needs at this time. Patient sent home with MAP medications requested by Phillip LAYNE.. Patient being sent home with O2. Contacted Melvi Iyer for approval of O2 at home as Cardiac PA said Mikhail Brewer at [facility] had indicated that the O2 arrangements had been approved. Melvi confirmed that [facility] will bill her and she will in turn bill [facility]. Information passed to Respiratory who will arrange home O2/ Date Signed: 06/14/2017 12:23 PM Electronically Signed By:Alexandra Guidry
== END 2017-06-14 13:00 | disposition home or self-care (01) | DRG 220 ==
LOC: F3E 05:48 → F2N 07:47 → F2W 06-11 09:34
PROVIDERS: ADMIT Thoracic Surgery (Cardiothoracic Vascular Surgery); ATTEND Thoracic Surgery (Cardiothoracic Vascular Surgery)
PROC: 02RF08Z Replacement of Aortic Valve with Zooplastic Tissue, Open Approach (ICD-10-PCS; principal; 2017-06-10 07:15)
PROC: 02UX08Z Supplement Thoracic Aorta, Ascending/Arch with Zooplastic Tissue, Open Approach (ICD-10-PCS; principal; 2017-06-10 07:15)
DX: I35.2 Nonrheumatic aortic (valve) stenosis with insufficiency (principal); D62 Acute posthemorrhagic anemia; I10 Essential (primary) hypertension; I42.8 Other cardiomyopathies
CPT/HCPCS: 82947-QW; 97116-GP; 97161-GP; 97166-GO; 97530-GP; 97535-GO; C1763; G0009; J0153; J0282; J0690; J1265; J1644; J1815; J1885; J1940; J2001; J2250; J2260; J2370; J2704; J2720; J2930; J3010; J7060; P9041

== ENCOUNTER → 2017-06-22 | Outpatient (CLI) | payer OTHER | LOC: FIMAGING 08:47 | PROVIDERS: ATTEND Thoracic Surgery (Cardiothoracic Vascular Surgery) | DX: R06.02 Shortness of breath (principal); J98.11 Atelectasis; J90 Pleural effusion, not elsewhere classified; Z98.890 Other specified postprocedural states ==